=== PATIENT | male | born 1985 | race Caucasian/White ===

== ENCOUNTER → 2017-12-13 | Outpatient (CLI) | payer BC ==
[~2017-12-13] MED LIST: HYDACE5 PO; IBUP800; IBUP800 PO; META800 PO
[2017-12-16 00:13] LABS: CHLAMYDIA TRACHOMATIS, NAA Negative (Negative); NEISSERIA GONORRHOEAE, NAA Negative (Negative)
== END | disposition home or self-care (01) ==
LOC: LAB EV 14:09 → LAB SHORT 14:09
PROVIDERS: Physician Assistant Medical
DX: N50.811 Right testicular pain (principal)
CPT/HCPCS: 87491; 87591

== ENCOUNTER 2021-04-04 16:01 | Emergency (ER) | payer OTHER, BC ==
[~2021-04-04] VITALS: Ht 170.2 cm; Wt 70.3 kg
[2021-04-06 07:10] LABS: HCV ANTIBODY <0.1 (0.0-0.9); HIV SCREEN 4TH GENERATION WRFX Non Reactive (Non Reactive)
== END 2021-04-04 16:27 | disposition home or self-care (01) ==
LOC: ER 16:01
PROVIDERS: Physician Assistant
DX: S69.92XA Unspecified injury of left wrist, hand and finger(s), initial encounter (principal); Z77.21 Contact with and (suspected) exposure to potentially hazardous body fluids; Z88.0 Allergy status to penicillin; W46.1XXA Contact with contaminated hypodermic needle, initial encounter
CPT/HCPCS: 36415; 84460; 86317; 86803; 87389; 99282

== ENCOUNTER 2021-11-01 09:31 | Day surgery (SDC) | payer BC ==
[~2021-11-01] VITALS: Ht 170.2 cm; Wt 69.5 kg
[2021-11-01] MEDS ORDERED: MELO7.5 (09:53)
== END 2021-11-01 10:35 | disposition home or self-care (01) ==
LOC: ORSCSDS 09:31
PROVIDERS: Anesthesiology
PROC: 3E0R33Z Introduction of Anti-inflammatory into Spinal Canal, Percutaneous Approach (ICD-10-PCS; principal; 2021-11-01 10:30)
DX: M51.16 Intervertebral disc disorders with radiculopathy, lumbar region (principal); Z79.899 Other long term (current) drug therapy
CPT/HCPCS: J1040